=== PATIENT | male | born 1945 | race African-American/Black ===

== ENCOUNTER 2017-03-31 22:59 | Observation (INO) | payer OTHER ==
[~2017-03-31] VITALS: Ht 185.4 cm; Wt 75.0 kg
[2017-03-31 23:09] VITALS: BP 187/86; PULSE 89; RESP 18; TEMP 99.9; O2SAT 99
[2017-03-31] MEDS ORDERED: NOVOINJ2 SQ (23:22)
[2017-03-31] MEDS ORDERED: IBUP400T20 PO (23:22)
[2017-03-31] MEDS ORDERED: RANI150T PO (23:22)
[2017-03-31] MEDS ORDERED: ENAL10TA PO (23:22)
[2017-03-31] MEDS ORDERED: ASPIRIN 81 MG CHEW TAB PO ONE (23:30)
[2017-03-31] MEDS ORDERED: SODIUM CHLORID 0.9% 500 ML INJ 500 ML IV ONE (23:30)
[2017-03-31] MEDS ORDERED: NITROGLYCERIN 0.4 MG SL 25 TABS/BTL SL ONE (23:30)
[2017-03-31] MEDS ORDERED: SODIUM CHLORIDE 0.9% FLUSH 10 ML FLUSH IVF PRN (23:30)
[2017-03-31 23:41] LABS: AUTOMATED NEUTROPHIL # 9.4 TH/MM3 (1.8-7.7); BASOPHIL % 0.2 % (0.0-2.0); EOSINOPHIL % 0.4 % (0.0-4.0); HEMATOCRIT 38.5 % (39.0-51.0); HEMO FLAGS DIFF FINAL; LYMPH % 6.4 % (9.0-44.0); LYMPHOCYTE # 0.7 TH/MM3 (1.0-4.8); MEAN CELL VOLUME 93.6 FL (80.0-100.0); MEAN CORPUSCULAR HEMOGLOBIN 30.9 PG (27.0-34.0); MONO % 7.1 % (0.0-8.0); NEUT % 85.9 % (16.0-70.0); PLATELET COUNT 167 TH/MM3 (150-450); RED BLOOD COUNT 4.11 MIL/MM3 (4.50-5.90); RED CELL DISTRIBUTION WIDTH 14.1 % (11.6-17.2)
[2017-03-31 23:45] VITALS: RESP 18; O2SAT 99
[2017-04-01] VITALS (7 sets, daily range): BP systolic 110–153; BP diastolic 58–78; PULSE 57–77; RESP 16–18; TEMP 98.8–99.4; O2SAT 96–98
--- NOTE | 2017-04-01 00:09 | RADRPT ---
EXAM DATE/TIME: 03/31/2017 23:48 [facility] COMPARISON: No previous studies available for comparison. INDICATIONS : Cephalgia. RADIATION DOSE: 56.35 CTDIvol (mGy) MEDICAL HISTORY : Hypertension. Chronic obstructive pulmonary disease. Diabetes mellitus type 2. SURGICAL HISTORY : None. ENCOUNTER: Initial ACUITY: 1 yr PAIN SCALE: 5/10 LOCATION: cranial TECHNIQUE: Multiple contiguous axial images were obtained of the head. Using automated exposure control and adj ustment of the mA and/or kV according to patient size, radiation dose was kept as low as reasonably a chievable to obtain optimal diagnostic quality images. DICOM format image data is available electro nically for review and comparison. FINDINGS: CEREBRUM: Scattered areas of low-attenuation are seen in the white matter. The ventricles are normal for age. No evidence of midline shift, mass lesion, hemorrhage or acute infarction. No extra-axial fluid maria teresa ections are seen. POSTERIOR FOSSA: The cerebellum and brainstem are intact. The 4th ventricle is midline. The cerebellopontine angle i s unremarkable. EXTRACRANIAL: The visualized portion of the orbits is intact. SKULL: The calvaria is intact. No evidence of skull fracture. CONCLUSION: 1. Chronic ischemic small vessel vasculopathy. 2. No acute intracranial abnormality. Lobo Mas MD on April 01, 2017 at 0:07 Board Certified Radiologist. This report was verified electronically.
--- NOTE | 2017-04-01 00:09 | RADRPT ---
EXAM DATE/TIME: 03/31/2017 23:21 [facility] COMPARISON: No previous studies available for comparison. INDICATIONS : Right posterior chest pain. MEDICAL HISTORY : None. SURGICAL HISTORY : None. ENCOUNTER: Initial ACUITY: 3 days PAIN SCORE: 7/10 LOCATION: Right flank FINDINGS: A single view of the chest demonstrates the lungs to be symmetrically aerated without evidence of mas s, infiltrate or effusion. The cardiomediastinal contours are unremarkable. Osseous structures are intact. Degenerative changes right shoulder with previous injury. CONCLUSION: No acute disease. Lobo Mas MD on April 01, 2017 at 0:06 Board Certified Radiologist. This report was verified electronically.
[2017-04-01 00:10] LABS: ALT (GPT) 22 U/L (12-78); ANION GAP 7 MEQ/L (5-15); AST (GOT) 15 U/L (15-37); BICARBONATE 26.9 MEQ/L (21.0-32.0); BLOOD UREA NITROGEN 16 MG/DL (7-18); CHLORIDE 102 MEQ/L (98-107); GLOMERULAR FILTRATION RATE 65 ML/MIN (>89); MAGNESIUM 1.6 MG/DL (1.5-2.5); POTASSIUM 4.1 MEQ/L (3.5-5.1); SODIUM (NA) 136 MEQ/L (136-145)
[2017-04-01 00:13] LABS: ALKALINE PHOSPHATASE 61 U/L (45-117); CREATINE KINASE 101 U/L (39-308); TOTAL BILIRUBIN ADULT 0.5 MG/DL (0.2-1.0)
[2017-04-01 00:21] LABS: APTT (PATIENT) 25.4 SEC (24.3-30.1); PROTHROMBIN TIME - PATIENT 10.7 SEC (9.8-11.6)
[2017-04-01 00:25] LABS: CKMB 0.7 NG/ML (0.5-3.6)
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
[2017-04-01] MEDS ORDERED: NITROGLYCERIN 2% OINT 1 GM PACKET TOPICAL ONE (01:15)
[2017-04-01] MEDS ORDERED: ONDANSETRON HCL 4 MG/2 ML VIAL IV PRN (01:15)
[2017-04-01] MEDS ORDERED: ACETAMINOPHEN/HYDROcodone 325 MG/5 MG TAB PO ONE (01:15)
[2017-04-01] MEDS ORDERED: ACETAMINOPHEN 500 MG CPLT PO PRN (01:15)
[2017-04-01] MEDS ORDERED: SODIUM CHLORIDE 0.9% FLUSH 10 ML FLUSH IV FLUSH PRN (01:15)
[2017-04-01 03:30] LABS: BACTERIA, URINE OCC /hpf; BLOOD, URINE LARGE (NEG); COMMENT (UR) CULTURE INDICATED; CULTURE IF INDICATED CULTURE INDICATED; GLUCOSE,URINE NEG (NEG); KETONE, URINE NEG (NEG); MUCUS URINE FEW /lpf (OCC); NITRITE,URINE NEG (NEG)
[2017-04-01 03:31] LABS: URINE COLOR LIGHT-RED (YELLW/STRAW)
[2017-04-01 04:14] LABS: CREATINE KINASE 94 U/L (39-308)
--- NOTE | 2017-04-01 04:36 | RADRPT ---
EXAM DATE/TIME: 04/01/2017 03:57 [facility] COMPARISON: No previous studies available for comparison. INDICATIONS : Abdominal pain and hematuria. ORAL CONTRAST: No oral contrast ingested. RADIATION DOSE: 5.62 CTDIvol (mGy) MEDICAL HISTORY : Hypertension. Chronic obstructive pulmonary disease. Diabetes. SURGICAL HISTORY : None. ENCOUNTER: Initial ACUITY: 3 days PAIN SCALE: 6/10 LOCATION: All quadrants. TECHNIQUE: Volumetric scanning of the abdomen and pelvis was performed. Using automated exposure control and ad justment of the mA and/or kV according to patient size, radiation dose was kept as low as reasonably achievable to obtain optimal diagnostic quality images. DICOM format image data is available electro nically for review and comparison. FINDINGS: LOWER LUNGS: The visualized lower lungs are clear. LIVER: Homogeneous density without lesion. There is no dilation of the biliary tree. No calcified gallston es. SPLEEN: Normal size without lesion. PANCREAS: Within normal limits. KIDNEYS: Normal in size and shape. There is no mass, stone, or hydronephrosis. Left renal low-density likely cysts. ADRENAL GLANDS: Within normal limits. VASCULAR: There is no aortic aneurysm. BOWEL/MESENTERY: The stomach, small bowel, and colon demonstrate no acute abnormality. There is no free intraperitone al air or fluid. ABDOMINAL WALL: Within normal limits. RETROPERITONEUM: There is no lymphadenopathy. BLADDER: No wall thickening or mass. REPRODUCTIVE: Within normal limits. INGUINAL: There is no lymphadenopathy or hernia. MUSCULOSKELETAL: Within normal limits for patient age. CONCLUSION: 1. Left renal cyst. 2. No renal calculi or hydronephrosis. Lobo Mas MD on April 01, 2017 at 4:31 Board Certified Radiologist. This report was verified electronically.
[2017-04-01 05:47] LABS: CREATINE KINASE 80 U/L (39-308)
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
[2017-04-01] MEDS ORDERED: PANTOPRAZOLE SOD 40 MG DELAYED RELEASE TAB PO SCH (09:00)
[2017-04-01] MEDS ORDERED: LISINOPRIL 10 MG TAB PO SCH (09:00)
[2017-04-01] MEDS ORDERED: SODIUM CHLORIDE 0.9% FLUSH 10 ML FLUSH IV FLUSH SCH (09:00)
[2017-04-01] MEDS ORDERED: GLUCAGON 1 MG/ML VIAL OTHER PRN (10:30)
[2017-04-01] MEDS ORDERED: DEXTROSE 50% IN WATER 50 ML VIAL(D50) IV PRN (10:30)
--- NOTE | 2017-04-01 10:46 | HHI.DCPOC ---
Discharge Care Plan Diagnosis: (1) Atypical chest pain Goals to Promote Your Health * To prevent worsening of your condition and complications * To maintain your health at the optimal level Directions to Meet Your Goals Take your medications as prescribed Follow your dietary instruction Follow activity as directed Keep your appointments as scheduled Take your immunizations and boosters as scheduled If your symptoms worsen call your PCP, if no PCP go to Urgent Care Center or Emergency Room Smoking is Dangerous to Your Health. Avoid second hand smoke Call the 24-hour hour crisis hotline for domestic abuse at [facility] Apr 01, 2017 10:45
[2017-04-01] MEDS ORDERED: INSULIN ASPART SUPPLEMENTAL SCALE SQ SCH (11:00)
--- NOTE | 2017-04-02 07:28 | EKG ---
Date Performed: 04/01/2017 Time Performed: 02:37:41 PTAGE: 72 years EKG: Sinus rhythm POSSIBLE RIGHT VENTRICULAR CONDUCTION DELAY BORDERLINE ECG NO PREVIOUS TRACING DOCTOR: Tino Villarreal Interpretating Date/Time 04/02/2017 07:26:35
--- NOTE | 2017-04-02 07:28 | EKG ---
Date Performed: 03/31/2017 Time Performed: 23:12:37 PTAGE: 72 years EKG: Sinus rhythm WITH SHORT DC INTERVAL POSSIBLE RIGHT VENTRICULAR CONDUCTION DELAY BORDERLINE ECG NO PREVIOUS TRACING DOCTOR: Tino Villarreal Interpretating Date/Time 04/02/2017 07:26:40
--- NOTE | 2017-04-02 07:35 | EKG ---
Date Performed: 04/01/2017 Time Performed: 05:11:11 PTAGE: 72 years EKG: SINUS BRADYCARDIA POSSIBLE RIGHT VENTRICULAR CONDUCTION DELAY BORDERLINE ECG NO PREVIOUS TRACING DOCTOR: Tino Villarreal Interpretating Date/Time 04/02/2017 07:31:58
== END 2017-04-01 12:23 | disposition home or self-care (01) ==
LOC: NEPC 22:59 → NEDA 04-01 01:11 → UNDOADMOB 04-01 01:11 → NEPGCP 04-01 04:09
PROVIDERS: ADMIT Internal Medicine Cardiovascular Disease; ATTEND Internal Medicine Cardiovascular Disease
DX: R07.89 Other chest pain (principal); I10 Essential (primary) hypertension; R31.9 Hematuria, unspecified; G89.29 Other chronic pain; R10.9 Unspecified abdominal pain; R51 Headache; K13.79 Other lesions of oral mucosa; R06.02 Shortness of breath; R53.1 Weakness; N28.1 Cyst of kidney, acquired; R19.7 Diarrhea, unspecified; R11.0 Nausea; R00.1 Bradycardia, unspecified; G62.9 Polyneuropathy, unspecified; J44.9 Chronic obstructive pulmonary disease, unspecified; E11.9 Type 2 diabetes mellitus without complications; K21.9 Gastro-esophageal reflux disease without esophagitis; F12.90 Cannabis use, unspecified, uncomplicated; Z79.4 Long term (current) use of insulin; Z89.221 Acquired absence of right upper limb above elbow; Z79.899 Other long term (current) drug therapy
CPT/HCPCS: 70450; 71010; 74176; 80053; 81001; 82550; 82552; 82948; 83690; 83735; 83880; 84484; 85025; 85379; 85610; 85730; 87040; 87086; 93005; 96360; 99285; G0378; J7040